=== PATIENT | female | born 1970 ===

== ENCOUNTER 2016-12-22 10:25 | Emergency (ER) | payer SELFPAY ==
[2016-12-22] MEDS ORDERED: BENADRYL IM ONE (14:17)
[2016-12-22] MEDS ORDERED: PEPCID PO ONE (14:17)
[2016-12-22] MEDS ORDERED: DECADRON IM ONE (14:17)
--- NOTE | 2016-12-22 14:17 | Emergency Department Report ---
ED Rash HPI - HPI Chief Complaint: Skin Rash Stated Complaint: BREAKING OUT ON ARMS Time Seen by Provider: 12/22/16 14:09 Duration: 1 Day Location: Chest, Back, Upper Extremities Suspected Cause: Unknown Rash Symptoms: Yes Itching, Yes Myalgias, No Facial Swelling, No Tongue/Oral Swelling, No Breathing Difficulties, No Choking Sensation, No Wheezing/Dyspnea, No Peeling, No Blistering, No Fever, No Lightheaded, No Malaise Severity: moderate Other History: Patient here complaining of rash to right arm and left arm and anterior posterior thorax. She says she visited her friend's house yesterday unrelated on the floor and when she came home she broke out into a rash. Denies any fever or chills. Denies any respiratory symptoms. She says she is itching at 4 out of 10 and no pain. ED Review of Systems ROS: Stated complaint: BREAKING OUT ON ARMS Other details as noted in HPI Comment: All other systems reviewed and negative Constitutional: denies: chills, fever ENT: denies: ear pain, throat pain, congestion Respiratory: denies: cough, shortness of breath, SOB with exertion, SOB at rest , stridor, wheezing Cardiovascular: denies: chest pain, palpitations, edema, syncope Gastrointestinal: denies: nausea, vomiting Musculoskeletal: denies: back pain, arthralgia Skin: rash, pruritus Neurological: denies: headache ED Past Medical Hx - Past Medical History Previous Medical History?: Yes Hx Hypertension: Yes Hx GERD: Yes Hx Arthritis: Yes - Surgical History Past Surgical History?: No - Family History Family history: no significant - Social History Smoking Status: Current Every Day Smoker Substance Use Type: Alcohol, Marijuana - Medications Home Medications: Home Medications Medication Instructions Recorded Confirmed Last Taken Type Diphenhydramine HCl [Benadryl 25 mg PO QHS PRN #5 tablet 12/22/16 Unknown Rx Allergy TAB] Furosemide [Lasix] 20 mg PO QDAY 12/22/16 12/22/16 12/22/16 History Hydrochlorothiazide [HCTZ] 1 tab PO DAILY 12/22/16 12/22/16 12/22/16 History Lisinopril [Zestril] 20 mg PO QDAY 12/22/16 12/22/16 12/15/16 History Loratadine [Claritin] 10 mg PO DAILY PRN #14 tablet 12/22/16 Unknown Rx methylPREDNISolone [Medrol Dose 4 mg PO QAM #1 pack 12/22/16 Unknown Rx Brent] Rash Exam - Exam General: Vital signs noted. No distress. Alert and acting appropriately. This is a 46-year-old female well-nourished well-developed in no acute distress. HEENT: No Periorbital Edema, No Conjuctival Injection, No Chemosis, No Perioral Edema, No Tongue Edema, No Uvular Edema, No Compromised Airway, No Drooling Lungs: Yes Good Air Exchange, No Wheezes, No Ronchi, No Stridor, No Cough, No Labored Respirations, No Retractions, No Use of Accessory Muscles, No Other Abnormal Lung Sounds Heart: Yes Regular, No Murmur Skin: Yes Urticarial Rash (located to anterior posterior thorax and bilateral upper extremity.), Yes Erythema, No Maculopapular Rash, No Morbilliform rash, No Bulla(e), No Excoriations, No Weeping, No Tenderness, No Edema, No Encrustations, No Other Other: Positive: Abdomen Normal, Neurologic Normal, Musculoskeletal Normal ED Course Vital Signs 12/22/16 11:10 Temperature 98.1 F Pulse Rate 87 Respiratory 20 Rate Blood Pressure 136/90 O2 Sat by Pulse 100 Oximetry - Reevaluation(s) Reevaluation #1: 12/22/16 15:23 Patient given Benadryl 50 mg, Decadron 10 mg IM and Pepcid 40 mg by mouth in emergency room. Evaluation, rash is clearing and patient does not itching. ED Medical Decision Making - Medical Decision Making ED course: Pt here with urticarial type rash. She was given Benadryl 50 mg, Decadron 10 mg IM and Pepcid 40 mg by mouth relief of itching and reduction and rash. I explained to patient that she will need to follow-up with cyber transport systems specialist or authorization representative for skin testing to determine what she is allergic to. Patient discharged home in stable condition with prescription for Benadryl to take at night, Claritin and daytime and Medrol Dosepak. Critical care attestation.: If time is entered above; I have spent that time in minutes in the direct care of this critically ill patient, excluding procedure time. ED Disposition Clinical Impression: Urticaria, Pruritic dermatitis Disposition: DISCHARGED TO HOME OR SELFCARE Is pt being admited?: No Does the pt Need Aspirin: No Condition: Stable Instructions: Urticaria (ED), Itchy Skin (ED) Additional Instructions: If rash recur or he develop swelling to throat, tongue and her neck. Return to the emergency room otherwise the primary care physician and 24 hours. Do not have one week and follow-up with outside Medical Center. Take Benadryl only at nighttime as this will cause drowsiness. Prescriptions: Diphenhydramine HCl [Benadryl Allergy TAB] 25 mg PO QHS PRN #5 tablet PRN Reason: Allergic Reaction Loratadine [Claritin] 10 mg PO DAILY PRN #14 tablet PRN Reason: Allergic Reaction methylPREDNISolone [Medrol Dose Brent] 4 mg PO QAM #1 pack Referrals: [facility] [Outside] - 2-3 Days Forms: Accompanied Note, Work/School Release Form(ED)
[2016-12-22 15:48] VITALS: BP 134/88
== END 2016-12-22 15:45 | disposition home or self-care (01) ==
LOC: ED 10:25
DX: L50.9 Urticaria, unspecified (principal); L30.8 Other specified dermatitis; I10 Essential (primary) hypertension; K21.9 Gastro-esophageal reflux disease without esophagitis; M19.90 Unspecified osteoarthritis, unspecified site; F17.200 Nicotine dependence, unspecified, uncomplicated; F12.10 Cannabis abuse, uncomplicated; Z79.899 Other long term (current) drug therapy
CPT/HCPCS: 96372; 99282; J1100; J1200